=== PATIENT | female | born 1950 | race Caucasian/White ===

== ENCOUNTER 2020-07-13 10:11 | Day surgery (SDC) | payer MEDICARE ==
[~2020-07-13] VITALS: Ht 165.1 cm; Wt 98.4 kg
[~2020-07-13 10:11] MED LIST: ATEN25TA PO; FLUT1BLS3 IH; LEVO100T PO; LISI1TAB23 PO; MONT10TA6 PO
[2020-07-13 10:47] VITALS: BP 135/82
[2020-07-13] MEDS ORDERED: CHLORHEXIDINE 15 ML UDC ONE (10:49)
[2020-07-13] MEDS ORDERED: OXYcodone 5 MG/5 ML ORAL.SOL UDC PO PRN (11:00)
[2020-07-13] MEDS ORDERED: ONDANSETRON 2MG/ML, 2ML IVPush PRN (11:00)
[2020-07-13] MEDS ORDERED: EPHEDRINE 50 MG/ML, 1ML IVPush PRN (11:00)
[2020-07-13] MEDS ORDERED: METOCLOPRAMIDE 5 MG/ML, 2ML IVPush PRN (11:00)
[2020-07-13] MEDS ORDERED: HALOPERIDOL 5 MG/ML IV PRN (11:00)
[2020-07-13] MEDS ORDERED: ACETAMINOPHEN 325 MG TABLET PO PRN (11:00)
[2020-07-13] MEDS ORDERED: METOPROLOL 1 MG/ML, 5ML IV PRN (11:00)
[2020-07-13] MEDS ORDERED: CHLORHEXIDINE 15 ML UDC PO ONE (11:00)
[2020-07-13] MEDS ORDERED: PROMETHAZINE 25 MG/ML, 1ML IVPush PRN (11:00)
[2020-07-13] MEDS ORDERED: LABETALOL 5MG/ML, 20ML IV PRN (11:00)
[2020-07-13] MEDS ORDERED: DIPHENHYDRAMINE 50 MG/ML, 1ML IVPush PRN (11:00)
[2020-07-13] MEDS ORDERED: hydrALAzine 20 MG/ML, 1ML IV PRN (11:00)
[2020-07-13] MEDS ORDERED: FENTANYL PF 100 MCG/2ML IV PRN (11:00)
[2020-07-13] MEDS ORDERED: LACTATED RINGERS 1,000 ML IV SCH (11:00)
[2020-07-13] MEDS ORDERED: ALEN70TA77 PO (11:04)
[2020-07-13] MEDS ORDERED: FENTANYL PF 100 MCG/2ML ONE (11:07)
[2020-07-13] MEDS ORDERED: LIDOCAINE 1%, 20ML ONE (11:19)
[2020-07-13] MEDS ORDERED: PROPOFOL 10 MG/ML, 20ML ONE (11:19)
[2020-07-13 11:31] LABS: ALANINE AMINOTRANSFERASE 19 U/L (12-78); ALBUMIN 3.6 g/dL (3.4-5.0); ANION GAP 5 mmol/L (5-15); CALCIUM 9.6 mg/dL (8.5-10.1); CHLORIDE 111 mmol/L (98-107); CREATININE 0.82 mg/dL (0.55-1.02)
[2020-07-13 11:34] LABS: ALKALINE PHOSPHATASE 84 U/L (45-117); BILIRUBIN,TOTAL 0.5 mg/dL (0.2-1.0); TOTAL PROTEIN 7.2 g/dL (6.4-8.2)
== END 2020-07-13 13:00 | disposition home or self-care (01) ==
LOC: OUT 10:11
PROVIDERS: ATTEND Internal Medicine Geriatric Medicine
DX: Z12.11 Encounter for screening for malignant neoplasm of colon (principal); D12.0 Benign neoplasm of cecum; D12.4 Benign neoplasm of descending colon; D12.3 Benign neoplasm of transverse colon; K57.30 Diverticulosis of large intestine without perforation or abscess without bleeding; I10 Essential (primary) hypertension; J44.9 Chronic obstructive pulmonary disease, unspecified; E03.9 Hypothyroidism, unspecified; G47.33 Obstructive sleep apnea (adult) (pediatric); Z20.822 Contact with and (suspected) exposure to COVID-19; Z79.899 Other long term (current) drug therapy; Z86.010 Personal history of colon polyps; Z91.041 Radiographic dye allergy status; Z99.81 Dependence on supplemental oxygen
CPT/HCPCS: 36415; 45380; 80053; 87635; 88305; 93005; J2704; J3010; J7120